=== PATIENT | male | born 1995 | race Caucasian/White ===

== ENCOUNTER 2018-03-17 01:52 | Emergency (ER) | payer SELFPAY ==
[~2018-03-17 01:52] MED LIST: NO RTN MEDS
[2018-03-17 01:53] VITALS: BP 144/97
--- NOTE | 2018-03-17 02:02 | ER Report ---
History and Physical Time Seen By MD: 01:54 Hx. of Stated Complaint: SENIOR LIVING CLEARANCE HPI/ROS CHIEF COMPLAINT: Retirement clearance, alcohol intoxication HISTORY OF PRESENT ILLNESS: 22-year-old male presents with police for fci clearance. Patient appears grossly alcohol intoxicated with slurred speech. Patient voices no complaints. Patient denies significant past medical history. REVIEW OF SYSTEMS: Respiratory: No cough, no dyspnea. Cardiovascular: No chest pain, no palpitations. Gastrointestinal: No vomiting, no abdominal pain. Musculoskeletal: No back pain. Allergies: Coded Allergies: No Known Drug Allergies (Verified , 08/24/12) Home Meds Reported Medications [No Rtn Meds] No Conflict Check, 0 Refills 12/04/10 Reviewed Nurses Notes: Yes Old Medical Records Reviewed: Yes Hx Smoking: No Exposure to Second Hand Smoke?: No Constitutional Vital Sign - Last 24 Hours 03/17/18 01:53 Temp 98.7 Pulse 119 Resp 18 B/P (MAP) 144/97 Pulse Ox 93 O2 Delivery Room Air Physical Exam Vital signs stable, mild tachycardia, afebrile, pulse ox normal General Appearance: The patient is alert, has no immediate need for airway protection and no current signs of toxicity. The patient of the head and neck reveal no tenderness or trauma HEENT: Pupils equal and round no injection. TMs normal,, oropharynx without dental trauma Respiratory: Chest is non tender, lungs are clear to auscultation. No chest wall tenderness Cardiac: regular rate and rhythm Gastrointestinal: Abdomen is soft and non tender, no masses, bowel sounds normal. Musculoskeletal: Neck: Neck is supple and non tender. Extremities have full range of motion and are non tender. No evidence of trauma Skin: No rashes or lesions. DIFFERENTIAL DIAGNOSIS: After history and physical exam differential diagnosis was considered for alcohol intoxication, polysubstance abuse, fci clearance Medical Decision Making ED Course/Re-evaluation ED Course Patient was admitted to an examination room. H&P was done. The differential diagnosis was considered. On clinical examination. Patient has no findings. His vital signs are stable. He voices no complaints. He is medically cleared for fci admission. Decision to Disposition Date: Mar 17, 2018 Decision to Disposition Time: 01:59 Depart Departure Latest Vital Signs Vital Signs Date Time Temp Pulse Resp B/P (MAP) Pulse Ox O2 Delivery O2 Flow Rate FiO2 03/17/18 01:53 98.7 119 18 144/97 93 Room Air Impression: Primary Impression: Medical clearance for incarceration Additional Impression: Alcohol intoxication Condition: Improved Disposition: [facility] TO [facility]/CORRECTIONAL F Referrals: TED MARTINEZ (PCP) Patient Instructions: Alcohol Intoxication (ED) Additional Instructions: Cleared for fci admission Problem Qualifiers Additional Impression: Alcohol intoxication Complication of substance-induced condition: uncomplicated Qualified Codes: F10.920 - Alcohol use, unspecified with intoxication, uncomplicated RICHARD TOSCANO DO Mar 17, 2018 02:02
== END 2018-03-17 02:06 | disposition home or self-care (01) ==
LOC: ER 01:58
DX: F10.920 Alcohol use, unspecified with intoxication, uncomplicated (principal)
CPT/HCPCS: 99281